=== PATIENT | female | born 1960 | race African-American/Black ===

== ENCOUNTER 2022-09-13 22:32 | Emergency (ER) | payer MEDICAID ==
[~2022-09-13] VITALS: Ht 157.5 cm; Wt 52.2 kg
[2022-09-13 22:32] VITALS: BP 166/95
--- NOTE | 2022-09-13 22:35 | NUR ---
TO LOBBY VIA W/CCHARLES FROM HOME FOR BODYACHES FOR 4 DAYS
--- NOTE | 2022-09-13 23:47 | NUR ---
Swabs taken and given to lab
[2022-09-14] MEDS ORDERED: MORPHINE SULFATE 4 MG/ML SYR IVP ONE (02:00)
[2022-09-14] MEDS ORDERED: ONDANSETRON 4 MG/2 ML VIAL IVP ONE ×2 (02:00→03:00)
[2022-09-14 02:37] LABS: BASOPHILS # (AUTO) 0.2 K/uL (0.00-0.22); BASOPHILS % (AUTO) 1.3 % (0.0-2.0); EOSINOPHILS # (AUTO) 0.6 K/uL (0-0.4); EOSINOPHILS % (AUTO) 4.1 % (0.0-4.0); HEMATOCRIT 21.9 % (36-48); HEMOGLOBIN 7.2 g/dL (12.0-16.0); LYMPHOCYTES # (AUTO) 6.7 K/uL (2.5-16.5); LYMPHOCYTES % (AUTO) 46.1 % (20.5-51.1); MEAN CORPUSCULAR HEMOGLOBIN 33 pg (27-31); MEAN CORPUSCULAR HGB CONC 33 g/dL (33-37); MEAN CORPUSCULAR VOLUME 99.2 fL (80-94); MONOCYTES # (AUTO) 1.1 K/uL (0.8-1.0); MONOCYTES % (AUTO) 7.5 % (1.7-9.3); PLATELET COUNT (AUTO) 170 K/uL (140-450); RED CELL DISTRIBUTION WIDTH 24.6 % (11.6-13.7); WHITE BLOOD COUNT (AUTO) 14.5 K/uL (4.8-10.8)
[2022-09-14] MEDS ORDERED: MORPHINE SULFATE 4 MG/ML SYR IM ONE ×2 (03:00→04:05)
[2022-09-14 03:04] LABS: ALBUMIN 3.1 g/dL (3.4-5.0); ANION GAP 15.2 (8-16); CARBON DIOXIDE 22.5 mmol/L (21-32); CREATININE 3.1 mg/dL (0.6-1.3); POTASSIUM 5.7 mmol/L (3.5-5.1); TOTAL BILIRUBIN 0.9 mg/dL (0.0-1.0)
[2022-09-14 03:09] LABS: LIPASE 918 U/L (73-393); MAGNESIUM 2.3 mg/dL (1.8-2.4)
[2022-09-14 04:40] VITALS: BP 163/89
--- NOTE | 2022-09-14 04:40 | NUR ---
Patient discharged with v/s stable. Written and verbal after care instructions given and explained. Patient verbalized understanding. Wheel Chair Assisted with to car. All questions addressed prior to discharge. Advised to follow up with PMD.
== END 2022-09-14 04:40 | disposition home or self-care (01) ==
LOC: MED 22:32
DX: R10.10 Upper abdominal pain, unspecified (principal); Z20.822 Contact with and (suspected) exposure to COVID-19; D57.00 Hb-SS disease with crisis, unspecified; N18.6 End stage renal disease; E87.5 Hyperkalemia; J18.9 Pneumonia, unspecified organism; Z99.2 Dependence on renal dialysis
CPT/HCPCS: 36415; 71045; 74176; 80053; 83690; 83735; 83880; 84484; 85025; 85045; 87426; 87804; 93005; 96372; 99291; 99292; J2270; J2405; Q0092; 99284